=== PATIENT | male | born 1955 | race Caucasian/White ===

== ENCOUNTER 2017-05-30 05:16 | Day surgery (SDC) | payer BC ==
[~2017-05-30] VITALS: Ht 177.8 cm; Wt 93.0 kg
[2017-05-30] MEDS ORDERED: OMEG12006 PO (05:40)
[2017-05-30] MEDS ORDERED: MULT-351 PO (05:41)
[2017-05-30] MEDS ORDERED: NAPR1TAB9 PO (05:41)
[2017-05-30 05:45] VITALS: BP 142/97; PULSE 77; TEMP 36.6; O2SAT 99; Ht 177.8 cm; Wt 93.0 kg
[2017-05-30] MEDS ORDERED: LACTATED RINGER'S 1000ML 1,000 ML IV SCH (05:45)
[2017-05-30 05:48] LABS: HEMATOCRIT 39.8 % (42-52); MEAN CELL VOLUME 91.9 fL (80-100); MEAN CORPUSCULAR HEMOGLOBIN 32.8 pg (25-34); MEAN PLATELET VOLUME 10.2 fL (7.4-10.4); PLATELET COUNT 204 K/uL (130-400); RED BLOOD COUNT 4.33 M/uL (4.7-6.1); WHITE BLOOD COUNT 6.44 K/uL (4.8-10.8)
[2017-05-30 05:54] LABS: MEAN CORPUSCULAR HGB CONC 35.7 g/dl (32-36)
[2017-05-30] MEDS ORDERED: CEFAZOLIN 2000 MG/60 ML D5W IV SCH (06:00)
[2017-05-30] MEDS ORDERED: BUPIVACAINE 0.5 % 5 MG/1 ML PF 10ML VIAL ONE ×2 (06:23→07:13)
[2017-05-30] MEDS ORDERED: MEPIVACAINE HCL 1.5% 30 ML VIAL ONE (06:24)
[2017-05-30] MEDS ORDERED: CLONIDINE HCL 100 MCG/ML SYRINGE ONE (06:24)
[2017-05-30] MEDS ORDERED: DEXAMETHASONE SOD INJ 4 MG/ML VIAL ONE (06:58)
[2017-05-30] MEDS ORDERED: PHENYLEPHRINE HCL INJ 10 MG/ML VIAL ONE (06:58)
[2017-05-30] MEDS ORDERED: NEOSTIGMINE METHYLSULFATE 5 MG/5 ML SYR ONE (06:58)
[2017-05-30] MEDS ORDERED: FENTANYL CITRATE INJ 50 MCG/1 ML 2 ML VIAL ONE (06:58)
[2017-05-30] MEDS ORDERED: GLYCOPYRROLATE INJ 0.2 MG/ML VIAL ONE (06:58)
[2017-05-30] MEDS ORDERED: SUCCINYLCHOLINE CHLORIDE 20 MG/ML 10 ML VIAL IV ONE (06:58)
[2017-05-30] MEDS ORDERED: PROPOFOL IV EMULSION 10 MG/ML 20 ML VIAL IV ONE (06:58)
[2017-05-30] MEDS ORDERED: ROCURONIUM BROMIDE 10 MG/ML 5 ML VIAL IV ONE (06:58)
[2017-05-30] MEDS ORDERED: ONDANSETRON INJ 2 MG/ML 2 ML VIAL ONE (06:58)
[2017-05-30] MEDS ORDERED: LIDOCAINE HCL 2% 2 ML VIAL (20MG/ML) ONE (06:58)
[2017-05-30] MEDS ORDERED: EpHEDrine SULFATE INJ 50 MG/ML AMP ONE (06:58)
[2017-05-30] MEDS ORDERED: MIDAZOLAM HCL 1 MG/ML 2ML VIAL ONE ×3 (06:59→07:43)
--- NOTE | 2017-05-30 07:09 | History and Physical ---
History & Physical Date May 30, 2017. Chief Complaint Patient relates while doing a tough monitor event having a Forced dorsiflexion event staining complete rupture of his Achilles tendon History of Present Illness The patient is a 61 year old male with complaints of weakness palpable defect from a full-thickness Achilles tendon rupture left Achilles Additional History Hepatic Disease: No Endocrine Disorder: No Kidney Disease: No Hypertension: No Heart Disease: No Bleeding Tendencies: No Infectious Diseases: No Allergies Coded Allergies: NO KNOWN DRUG ALLERGIES (Verified Allergy, Unknown, none, 05/30/17) Home Medications Scheduled Multiple Vitamin (Multi Vitamin Mens), 1 TAB PO DAILY Naproxen (Aleve), 2 TAB PO QAM [place]-3 Fatty Acids ([place] 3), 1 CAP PO DAILY Physical Examination Skin: warm/dry, no rash Eyes: normal inspection, EOMI, sclerae normal ENT: normal ENT inspection, pharynx normal Head: normocephalic, atraumatic Neck: supple, no adenopathy, trachea midline Respiratory/Chest: lungs clear, normal breath sounds, no respiratory distress Cardiovascular: regular rate, rhythm, no edema, no murmur Abdomen / GI: normal bowel sounds, non tender Back: normal inspection Extremities: normal inspection, normal range of motion, + pertinent finding ( Achilles tendon rupture palpable defect E Gomez proximal to the insertion) Neurologic/Psych: no motor/sensory deficits, alert, normal reflexes, oriented x 3 Diagnosis Patient has a complete rupture of Achilles tendon 2 cm proximal to its insertion Plan of Treatment Achilles tendon repair postoperative antibiotics and splinting gait training
--- NOTE | 2017-05-30 07:09 | History & Physical Bridge Note ---
H&P Re-Evaluation Bridge Note: I have examined the patient, reviewed the History & Physical and in the interval since the performance of the History & Physical I have noted the following changes of clinical significance: No changes noted
--- NOTE | 2017-05-30 07:17 | Discharge Instructions ---
Discharge Instructions Date of Service May 30, 2017. Visit Reason for Visit: Left Ankle Achilles Tendon Injury, Sequela Discharge Discharge Diagnosis / Problem: left achilles tendon repair Discharge Goals Goal(s): Decrease discomfort, Improve function, Increase independence Activity Recommendations Activity Limitations: as noted below Shower/Bathe: tomorrow (keep splint covered and dry with plastic bag) Weightbearing Status: Left non-weightbearing Anesthesia . Post Anesthesia Instructions: If you have had General Anesthesia or IV Sedation: * Do not drive today. * Resume driving when surgeon permits. * Do not make important decisions or sign legal documents today. * Call surgeon for: 1. Temperature elevations greater than 101 degrees F. 2. Uncontrollable pain. 3. Excessive bleeding. 4. Persistent nausea and vomiting. 5. Medication intolerance (nausea, vomiting or rash). * For nausea and vomiting use only clear liquids such as: tea, soda, bouillon until nausea subsides, then gradually increase diet as tolerated. * If you have any concerns or questions, call your surgeon's office. If physician is unavailable and it is an emergency, call 911 or go to the nearest emergency room. . Instructions / Follow-Up Instructions / Follow-Up ACTIVITY RECOMMENDATIONS: * You should remain non-weightbearing on your left leg using crutches or a walker. SPECIAL CARE INSTRUCTIONS: * Some drainage onto the dressing is normal and is no cause for alarm. * Some swelling is natural especially after walking. When resting, keep your foot elevated above the level of your heart. * Call the doctor's office at if you notice increased drainage, fever over 101 degrees F. or severe constant pain. BANDAGE: * Leave bandage/cast in place unless otherwise directed. * Keep bandage/cast dry at all times. FOLLOW UP VISIT: If appointment is not already scheduled: Please call [facility] to make a follow-up appointment after your surgery at . Diet Recommendations Recommended Home Diet: resume previous diet Pending Studies Studies pending at discharge: no Medical Emergencies . Who to Call and When: Medical Emergencies: If at any time you feel your situation is an emergency, please call 911 immediately. . Non-Emergent Contact Non-Emergency issues call your: Primary Care Provider, Surgeon . . "Provider Documentation" section prepared by Marco A Pink. . ID Drug Monitoring Program Search Results: patient reviewed within database, no issues identified
--- NOTE | 2017-05-30 08:27 | [facility] Operative Report ---
Operative Report Operative Date May 30, 2017. Pre-Operative Diagnosis Complete Rupture of the Left Achilles Tendon Post-Operative Diagnosis Complete Rupture of the Left Achilles Tendon Procedure(s) Performed Left Ankle Achilles Repair utilizing #2 FiberWire core suture and epitendinous stitch Surgeon Dr. Reynolds Scleroscope Tester Surgeon(s) SHELLI Beckett Estimated Blood Loss 3cc Findings Patient presents with a complete disruption proximal a 7 weeks old of his left Achilles tendon 2 cm proximal to the Achilles tendon insertion with approximately 4-5 cm or proximal retraction Specimens none per surgeon Complication(s) None Disposition Recovery Room / PACU Indications Complete disruption with 4-5 cm defect left Achilles tendon Description of Procedure After proper prepping draping position placed on a prone position was. This bony prominences he had proper prepping draping of his left lower extremity from the just proximal to the knee including the whole lower leg and foot socially prone position intervention. Neurovascular structures a Dorsal incision was made and dissection carried through subcutaneous tissues to the region peritoneal apparently very carefully preserved and reflected from tendon the skin was not handled the wounds revealed loss of sterile saline solution socially the proximal and distal stumps were retracted and freed loose from the underlying scar tissue adhesions #2 FiberWire core suture was placed as well as a #4-0 FiberWire epitendinous suture was placed gave excellent reapproximation of the tendon edges of the peritenon was closed with 3-0 Vicryl in running fashion from proximal to distal subcuticular suture of Vicryl and 4- 0 nylon a sterile compressive dressing placed as well as a posterior plaster splint patient taken recovery in stable condition operative report dictated by Rodolfo patient Tim MARQUES was necessary for prepping draping retraction deep fascia was was necessary for closure of defect is subcutaneous and skin was necessary for the case I attest to the content of the Intraoperative Record and any orders documented therein. Any exceptions are noted below.
[2017-05-30] MEDS ORDERED: FLUMAZENIL 0.1 MG/1 ML 10 ML VIAL IV PRN (08:30)
[2017-05-30] MEDS ORDERED: EpHEDrine SULFATE INJ 50 MG/ML AMP IV PRN (08:30)
[2017-05-30] MEDS ORDERED: ONDANSETRON INJ 2 MG/ML 2 ML VIAL IV PRN ×2 (08:30→08:45)
[2017-05-30] MEDS ORDERED: PROMETHAZINE HCL INJ 12.5 MG in SODIUM CHLORIDE 0.9% 50ML 50 ML IV PRN (08:30)
[2017-05-30] MEDS ORDERED: NALOXONE HCL 0.4 MG/1 ML VIAL/CARP IV PRN (08:30)
[2017-05-30] MEDS ORDERED: ATROPINE SULFATE 0.1 MG/ML 5ML SYR IV PRN (08:30)
[2017-05-30] MEDS ORDERED: SODIUM CHLORIDE 0.9% 1000ML 1,000 ML IV SCH (08:42)
[2017-05-30] MEDS ORDERED: OXYC-57 PO (08:44)
[2017-05-30] MEDS ORDERED: OXYCODONE/ACETAMINOPHEN 5-325 TAB PO PRN ×2 (08:45)
[2017-05-30 09:40] VITALS: BP 99/64; PULSE 55; TEMP 36.5; O2SAT 98
--- NOTE | 2017-05-30 09:47 | Anesthesiology Progress Note ---
Anesthesia Post Op Note Date & Time May 30, 2017 at 09:47 Vital Signs Pain Intensity: 0 Vital Signs Past 12 Hours Date Time Temp Pulse Resp B/P (MAP) Pulse Ox O2 Delivery O2 Flow Rate FiO2 05/30/17 09:35 36.8 53 16 106/58 99 Room Air 05/30/17 09:20 36.8 51 16 103/60 99 Room Air 05/30/17 09:10 59 16 110/66 97 Room Air 05/30/17 09:00 52 14 108/68 97 Room Air 05/30/17 08:50 63 14 108/66 97 Room Air 05/30/17 08:42 36.6 57 14 102/67 97 Room Air 05/30/17 05:45 36.6 77 18 142/97 (112) 99 Room Air Notes Mental Status: alert / awake / arousable, participated in evaluation Pt Amnestic to Procedure: Yes Nausea / Vomiting: adequately controlled Pain: adequately controlled Airway Patency, RR, SpO2: stable & adequate BP & HR: stable & adequate Hydration State: stable & adequate Neuraxial Anesthesia: was administered, sensory block is resolving Anesthetic Complications: no major complications apparent
[2017-05-30 10:10] VITALS: BP 121/66; PULSE 52; O2SAT 100
[2017-05-30 10:45] VITALS: BP 111/65; PULSE 51; O2SAT 98
[2017-05-30 11:45] VITALS: BP 127/67; PULSE 60; O2SAT 100
[2017-05-30 12:45] VITALS: BP 125/58; PULSE 70; O2SAT 100
== END 2017-05-30 13:16 | disposition home or self-care (01) ==
LOC: C.ACU 05:16
PROVIDERS: ATTEND Orthopaedic Surgery
DX: S96.8 Injury of other specified muscles and tendons at ankle and foot level (principal); X58.XXXS Exposure to other specified factors, sequela; E66.9 Obesity, unspecified

== ENCOUNTER 2023-03-31 06:49 | Observation (INO) ==
--- NOTE | 2023-02-22 13:08 | PAT Medication Instructions ---
Medication Instructions Date of Service February 22, 2023 Home Medications Medication Instructions Recorded Cesar Mcintyre #1 ea 11/11/22 ferrous sulfate 325 mg (65 mg iron) tablet (iron) 650 mg PO BID multivitamin 1 tab PO DAILY DO NOT take the morning of surgery ferrous sulfate 325 mg (65 mg iron) tablet (iron) 650 mg PO BID multivitamin 1 tab PO DAILY Take evening before surgery ferrous sulfate 325 mg (65 mg iron) tablet (iron) 650 mg PO BID OTHERWISE NOTHING TO EAT OR DRINK AFTER MIDNIGHT Other Notes If you have any questions please call us at [phone] or [phone] or [phone] or [phone]
--- NOTE | 2023-03-02 13:46 | Anesthesiology Consultation ---
Date of Service March 02, 2023 Assessment & Plan (1) Encounter for pre-operative examination: - COVID screening: Per assessment on 03/02: No known COVID-19 positive contacts or current COVID-19 related symptoms. Travel screen negative. At surgeon discretion if preop Covid testing being done. - Outpatient joint assessment: Pt currently scheduled for inpatient pathway. If surgeon requests review for outpatient joint pathway, patient is an acceptable candidate for outpatient joint program from anesthesia standpoint pending surgeon's office assessment that patient is motivated, has good support and completes Same Day Joint Program preop requirements. - S/P Left Achilles repair (05/30/17): SAB x1 attempt + PNB at [facility] - Preop coags done 03/02/23 unable to be run per [facility] lab given specimen was "too lipemic." Lipid panel done by PCP same day were unremarkable. Possibly r/t food intake prior to having labs drawn. Will order coags for AM DOS. Chart Review Chart Review: Acceptable Risk for Surgery and Patient seen in Pre Admission Testing Teaching & Discussion Pre-Anesthesia Teaching/Discussion Notes: Instructed NPO after midnight before surgery,except medications with 15 cc of water. Medication instructions provided according to the PAT guidelines. History Surgery Operation Date: 03/31/23 07:00 Proposed Procedures p Right Total Hip Arthroplasty - Narayan Geroge MD Height/Weight Height: 5 ft 10 in Weight: 98 kg Allergies Allergy/AdvReac Type Severity Reaction Status Date / Time No Known Drug Allergies Allergy Unknown none Verified 02/17/23 14:18 Medications Home Medications Medication Instructions Recorded Confirmed Last Taken Wheeled Walker #1 ea 11/11/22 11/11/22 Unknown ferrous sulfate 325 mg (65 mg 650 mg PO BID 02/17/23 02/17/23 Unknown iron) tablet (iron) multivitamin 1 tab PO DAILY 02/17/23 02/17/23 Unknown Past Medical History Medical History Arthritis of right hip History of asthma As child Exercise / Class Metabolic Activity II 4-5 Yardwork/Stairs/Walk up hill Past Family History Family History Other No family history of adverse response to anesthesia Past Surgical History Surgical History History of colonoscopy History of tonsillectomy Hx of Achilles tendon repair Left Achilles repair (05/30/17): SAB x1 attempt + PNB at [facility] Past Anesthesia History No Hx of Anesthesia Complications and No Family Hx of Anesthesia Complications History of PONV No Hx of PONV and Hx of Motion Sickness (Situational) Social History Smoking Status: Former smoker tobacco type: cigarettes Do You Dip or Chew Tobacco: No Smoking End Date: Quit (hx light use) Hx Alcohol Use: Yes Alcohol type: beer alcohol intake frequency: a few times a week substance use type: does not use Review of Systems Patient denies chest pain, shortness of breath, dyspnea on exertion, fever, chills, cough, wheezing, palpitations. Physical Exam Vital Signs VITALS BP 142/92 P 90 TEMP 98.3 SP02 97%RA RESP 16 PHYSICAL Full cervical extension range of motion. Full TMJ range of motion. TMD 3.5 finger breaths Mallampati Score 2 Dentition: intact, + bridge (lower right side) Lungs: clear throughout to auscultation Cardiac: regular rate and rhythm, no murmurs noted Spine: normal Carotid arteries: negative bruit Extremities: no LE edema Lab Results Anesthesia Preop Results Results Anesthesia Widget: Blood Type AB Positive 03/02/23 Antibody Screen NEGATIVE 03/02/23 Testing Laboratory Results 03/02/23 WBC 5.55 H/H 13.8/40.0 PLATELETS 224 SODIUM 139 POTASSIUM 4.6 CHLORIDE 105 CO2 24 BUN 16 CREATININE 0.8 GLUCOSE 113 TSH 3.04 PSA 0.27 TESTOSTERONE 404.9 Triglycerides 143 Cholesterol 189 HDL 39L Non-HDL cholesterol 150 LDL 121 Electrocardiogram Date: 03/02/23 NSR at 87bpm. LAD. iRBBB. Chest X-Ray Date: 03/02/23 FINDINGS: PA and lateral chest radiographs are obtained. No prior studies are available for comparison at the time of dictation. The cardiomediastinal silhouette is unremarkable. The lungs and pleural spaces are clear. There is no pneumothorax. The skeletal structures are osteopenic. The bony thorax appears intact. Degenerative change is noted in the spine. IMPRESSION: No active disease in the chest. COVID-19 Risk Screen Screening Information COVID-19 Screen Date: 03/02/23 Exposure 21 Days Family/Household +COVID Last 21 Days: No Exposure 10 Days Any COVID Exposure Last 10 Days: No Symptoms Last 10 Days Experienced COVID Sx Last 10 Days: No + COVID 0-90 Days COVID + in Last 0-90 Days: No
--- NOTE | 2023-03-26 10:43 | History & Physical Report ---
Date of Service March 26, 2023 Assessment & Plan (1) Arthritis of right hip: Patient has advanced right hip arthritis. Is affecting his quality life and he like to have his hip fixed. Taken to the operating to a right total hip replacement. The risk meant this procedure plan the patient include but not limited to DVT PE infection neurological and vascular bleeding palm pain limb range of motion test is fairly with symptoms incomplete relief of symptoms fracture dislocation and need for revision surgery. Patient understands and desires to proceed. Informed consent is obtained. He does live by himself and can probably need some assistance. He is planned to be observed overnight and did discharge postoperative day 1 after physical therapy. He will follow back with me in 2 weeks. History of Present Illness Chief Complaint: . Right hip pain, stiffness, and discomfort. Primary Care Provider: Ambrose Rutherford PA-C . 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 He has had about a 2-year history of increasing right hip pain discomfort that is gradually gotten worse as time goes on. He enjoys walking and hiking and having more difficulty doing this. He can hike a couple miles but then has significant pain after that and pays for it for the next couple days. He does limp the more he is up and on it. He would like to keep hiking but have more difficulty doing this. He describes lateral hip pain groin pain thigh pain. No swelling. He has difficulty putting his shoes and socks on. He like to have his hip better as so he can maintain an active lifestyle. Allergies Allergy/AdvReac Type Severity Reaction Status Date / Time No Known Drug Allergies Allergy Unknown none Verified 02/17/23 14:18 Home Medications Medication Instructions Recorded Confirmed Type ferrous sulfate 325 mg (65 mg 650 mg PO BID 02/17/23 02/17/23 History iron) tablet (iron) multivitamin 1 tab PO DAILY 02/17/23 02/17/23 History Wheeled Walker #1 ea 03/17/23 Rx Past Med/Surg History Medical History Arthritis of right hip History of asthma As child Surgical History History of colonoscopy History of tonsillectomy Hx of Achilles tendon repair Left Achilles repair (05/30/17): SAB x1 attempt + PNB at [facility] Family History Other No family history of adverse response to anesthesia Social History Smoking Status: Former smoker Second Hand Exposure: No; Do You Dip or Chew Tobacco: No; Hx Alcohol Use: Yes Alcohol type: beer Preferred Language: Macedonian Frame Nailer Required: No Beliefs That Will Affect Care: None Current Living Situation: Alone Feels Safe at Home: Yes Assistive Devices: None Review of Systems All systems reviewed & are unremarkable except as noted in HPI & below. Physical Exam . Physical examination of the right hip reveals the patient walks with a minimal limp. The leg lengths appear pretty equal. Does have a lot of stiffness and internally rotates to neutral at best. Negative straight leg raise. Does recreate his pain. No knee effusion. He is neurologically intact. ENMT external ear and nose normal, oropharynx normal Neck trachea midline, no thyromegaly Respiratory normal respiratory effort, lungs clear to auscultation Cardiovascular RRR, no murmur, no edema Gastrointestinal (Abdomen) normal bowel sounds, soft, nontender, no hepatosplenomegaly Results & Data Results & Data Laboratory Results . Diagnostic Findings . X-rays of the right hip revealed advanced right hip arthritis but is got complete loss of the superior joint space. He is got some chondral sclerosis. Good bone density. Not a lot of osteophyte formation. PG Care Time/CCT Total # of Minutes Spent Total Time Spent with Patient: Total time spent is greater than 50% in coordination of care (as documented) at patient's floor/unit and/or counseling patient: Coding Level of Care Code None Diagnoses Arthritis of right hip M16.11
[~2023-03-31 06:49] MED LIST: ACETAMINOPHEN 500 MG TAB PO SCH; CeleBREX 200 MG CAP PO SCH; FAMOTIDINE 20 MG TAB PO SCH; LR 500ML BOLUS, THEN 15ML/HR IV SCH; LR 60ML/HR IV SCH; METOCLOPRAMIDE HCL 10 MG TABLET PO SCH; ROPIVACAINE 0.5% 5 MG/ML 30 ML VIAL ONE; Scopolamine 1 MG TDSY TD SCH; TRANEXAMIC ACID 1,000 MG **IV Pre-op IV SCH; ceFAZolin 2000MG 2,000 MG/15 ML SYR IV SCH
--- NOTE | 2023-03-31 06:56 | History & Physical Bridge Note ---
Date of Service March 31, 2023 History & Physical Bridge Note I have examined the patient, reviewed the History & Physical and in the interval since the performance of the History & Physical I have noted the following changes of clinical significance: no changes noted
[2023-03-31] MEDS ORDERED: MoRPHine SULFATE PF 1 MG/ML 10 ML AMP/VIAL ONE (07:28)
[2023-03-31] MEDS ORDERED: MIDAZOLAM HCL 1 MG/ML 2ML VIAL ONE ×2 (07:28→10:00)
[2023-03-31 07:53] LABS: INR 1.1 (0.9-1.1); Partial Thromboplastin Time 28.5 Seconds (21.0-31.0); Prothrombin Time 11.7 Seconds (9.0-12.0)
[2023-03-31] MEDS ORDERED: PROPOFOL IV EMULSION 10 MG/ML 20 ML VIAL IV ONE (08:32)
[2023-03-31] MEDS ORDERED: KETOROLAC 30 MG/ML VIAL ONE (08:32)
[2023-03-31] MEDS ORDERED: LIDOCAINE 2% 2 ML VIAL/AMP(20MG/ML) INFIL ONE (08:32)
[2023-03-31] MEDS ORDERED: ONDANSETRON INJ 2 MG/ML 2 ML VIAL ONE (08:32)
[2023-03-31] MEDS ORDERED: HYDROmorphone INJ 1 MG/ML SYRINGE IV PRN (08:40)
[2023-03-31] MEDS ORDERED: ATROPINE SULFATE 0.1 MG/ML 10ML SYR IV PRN (08:40)
[2023-03-31] MEDS ORDERED: KETOROLAC 30 MG/ML VIAL IV PRN ×2 (08:40→09:32)
[2023-03-31] MEDS ORDERED: ONDANSETRON INJ 2 MG/ML 2 ML VIAL IV PRN ×3 (08:40→12:15)
[2023-03-31] MEDS ORDERED: ePHEDrine sulfate 50 MG/ML AMP IV PRN ×2 (08:40→09:32)
[2023-03-31] MEDS ORDERED: diphenhydrAMINE 50 MG/ML VIAL IV PRN (09:32)
[2023-03-31] MEDS ORDERED: NALOXONE HCL 0.4 MG/1 ML VIAL/CARP IV PRN ×2 (09:32→12:15)
[2023-03-31] MEDS ORDERED: NALOXONE HCL 0.08 MG in SYRINGE 1.8 ML IV PRN (09:32)
[2023-03-31] MEDS ORDERED: LACTATED RINGER'S 500 ML IV PRN (09:32)
[2023-03-31] MEDS ORDERED: NALBUPHINE HCL INJ 10 MG/ML AMP IV PRN (09:32)
[2023-03-31] MEDS ORDERED: NALOXONE HCL 1 MG in SODIUM CHLORIDE 0.9% 1000ML 1,000 ML IV PRN (09:32)
[2023-03-31] MEDS ORDERED: HYDROmorphone INJ 0.5 MG/0.5 ML SYR IV PRN ×2 (09:32→12:15)
[2023-03-31] MEDS ORDERED: MoRPHine SULFATE PF 1 MG/ML 10 ML AMP/VIAL INT SPINAL ONE (09:32)
[2023-03-31] MEDS ORDERED: PROMETHAZINE HCL 12.5 MG in SODIUM CHLORIDE 0.9% 50 ML IV PRN (09:32)
[2023-03-31] MEDS ORDERED: BUPIVACAINE/EPINEPHRINE 0.5% MPF 1:200,000 30 ML VIAL ONE (09:38)
[2023-03-31] MEDS ORDERED: NO NARCOTICS OR SEDATIVES SCH (09:45)
[2023-03-31] MEDS ORDERED: DC INTRASPINAL MORPHINE SCH (09:45)
[2023-03-31] MEDS ORDERED: SODIUM CHLORIDE 0.9% 1000ML 1,000 ML IV SCH (09:45)
[2023-03-31] MEDS ORDERED: ePHEDrine sulfate 50 MG/ML SYR ONE (10:50)
[2023-03-31] MEDS ORDERED: PHENYLEPHRINE 100MCG/ML 5ML SYR ONE (10:50)
--- NOTE | 2023-03-31 11:29 | Operative Report ---
PG Post Operative Report Pre & Post Diagnosis Operation Date: 03/31/23 08:40 Pre-Op Diagnosis: Arthritis of right hip Post-Op Diagnosis: Arthritis of right hip I identified the patient and participated in the time-out.: Yes Procedure Operation Date: 03/31/23 08:40 Actual Procedures p Right Total Hip Arthroplasty(Right) - Narayan George MD Surgeon Narayan George MD Abrasive Worker None Estimated Blood Loss 200 Findings Consistent with Post-Op Diagnosis Operative findings reveal advanced hip DJD. He did have full-thickness cartilage loss of the femoral head. No real major eburnation. Fairly minimal osteophyte formation. Small to moderate-sized hip joint effusion. Specimens Right femoral head sent for pathology Anesthesia Type Spinal MAC Complications none Disposition Accompanied Patient To Recovery: No Indications Patient is a 67-year-old very active gentleman has had a several year history of increasing right hip pain discomfort is gotten significant worse over the past year that started limiting his activities. He had classic groin pain. X-rays show advanced hip arthritis. He failed conservative measures and elected proceed with total hip arthroplasty. Description of Procedure Operative implants consist of: 1 Biomet G7 size 56 mm acetabular shell. 2. Olmstead hole eliminator. 3. 6.5 cancellous acetabular screws 1 of 35 mm in length 130 mm length. 4. Highly cross-linked polyethylene liner with a 56 mm outer diameter and 36 mm inner diameter. 5. DePuy Karaya size 12 KLA femoral stem. 6. +1.5/36 mm ceramic articular ball. The patient was taken to the operating, identified, and placed on the operating table supine position. All contractors were appropriately padded. IV antibiotics tried by anesthesia team. A spinal anesthetic had been implemented holding area. Patient was then placed in the left lateral cubitus position. An axillary roll was placed. A Stulberg hip positioner was used for positioning. The right hip and leg were then prepped and draped in usual sterile fashion. A posterolateral approach to the right hip was then performed through a curvilinear incision centered over the greater trochanter. Sharp dissection scalp through subcutaneous tissue down to the IT band gluteal fascia. The IT band gluteal fascia was incised longitudinally in line with skin incision. His IT band was fairly thick. The greater trochanter bursa was excised. The piriformis and external rotators along with the hip joint capsule was then released from the posterior aspect of the hip as a single layer. Great care was taken throughout the procedure protect the sciatic nerve at all times. Hip was internally rotated and dislocated. A femoral neck osteotomy cut was made with a Final Cut about 15 mm above the lesser trochanter. Femoral head was removed and sent for pathology. The femur was retracted anteriorly. Attention drawn the acetabulum. The acetabular labrum was excised. The pulmonary fat was excised. Sequential reaming the acetabular was then performed again with a size 47 progressing up to 55. I did ream a little bit with a 56 reamer and then placed a 56 mm cup in about 40 degrees lateral opening and 20 degrees of anteversion. It was fixed with two 6.5 cancellous acetabular screws. Trial liner was placed. Attention drawn the femur. The femur was entered with a XenSource cutter followed by canal finder. Then broached beginning size 8 and progressed up to 12. Got excellent fit of the 12. We trialed the hip and the +5 articular ball provide full stability but seemed a bit tight in extension. Therefore we elect to place a 1.5 neck length segment. I was also able to advance the implant down a little bit further than the initial placement. Attention drawn to placing permanent implants. Nupathe all trial implants were removed. Olmstead hole limiter was placed. Highly cross- linked polyethylene liner was placed. A size 12 KLA femoral stem was impacted in position. +1.5/36 mm ceramic articular ball was placed. Hip was then examined and found to be stable. Attention drawn to closing. Wounds irrigated cosigns pulsatile lavage solution. I did inject locally with 60 cc of absent Marcaine with epinephrine. The posterior capsule and external rotators were repaired through drill holes in the posterior trochanter as a single layer with #2 Tycron suture. The IT band gluteal fascia then closed in 1 PDS suture running fashion. Subcutaneous tissues then closed with 2 Dexon suture in a buried interrupted fashion. Skin was closed skin johnny. Leg was then cleaned and dried and sterile dressed with Xeroform, 4 x 4's, ABD pad, foam tape was applied. The patient then transferred to the recovery room in stable condition. Patient tolerated the procedure well and there were no complications. I attest to the content of the Intraoperative Record and any orders documented therein. Any exceptions are noted below.
[2023-03-31] MEDS ORDERED: bisacodyL 10 MG SUPP PR PRN (12:15)
[2023-03-31] MEDS ORDERED: METOCLOPRAMIDE HCL INJ 5 MG/ML 2 ML VIAL IV PRN (12:15)
[2023-03-31] MEDS ORDERED: MAGNESIUM HYDROXIDE SUSP 30 ML UDC PO PRN (12:15)
[2023-03-31] MEDS ORDERED: ALUMINUM/MAGNESIUM SUSP 30 ML UDC PO PRN (12:15)
[2023-03-31] MEDS: SODIUM CHLORIDE 0.9% 1000ML 1,000 ML IV SCH ×2 (12:28→22:03)
[2023-03-31] MEDS: ACETAMINOPHEN 500 MG TAB PO SCH ×2 (13:35→20:17)
--- NOTE | 2023-03-31 13:40 | XRay Report ---
XR hip 1V RT w pelvis HISTORY: 67 years-old Male IN PACU - Post Surgical right hip arthroplasty COMPARISON: 11/11/2022 TECHNIQUE: AP view of the pelvis with crosstable lateral view of the related FINDINGS: Moderate left hip osteoarthritis. Right hip arthroplasty with lateral skin jonhny, expected postoper ative soft tissue swelling the deep tissue air. No acute fracture, dislocation or unexpected opaque f oreign body. IMPRESSION: Right hip arthroplasty with expected postoperative changes. [place] 112: Negative or not required by law. The above report was generated using voice recognition software. It may contain grammatical, syntax o r spelling errors. Electronically signed by: Dexter Jo M.D. 03/31/2023 1:39 PM
[2023-03-31] MEDS ORDERED: ACETAMINOPHEN 500 MG TAB PO SCH (14:00)
[2023-03-31] MEDS: Scopolamine CHECK PATCH PLACEMENT SCH ×2 (16:57→23:12)
[2023-03-31] MEDS: ASCORBIC ACID 500 MG TAB PO SCH (17:27)
[2023-03-31] MEDS ORDERED: TRANEXAMIC ACID / 0.7% NACL 1,000 MG/100 ML BAG IV SCH (17:30)
[2023-03-31] MEDS: ceFAZolin 2000MG 2,000 MG/15 ML SYR IV SCH (17:33)
[2023-03-31] MEDS: FERROUS SULFATE 325 MG TAB PO SCH (20:17)
[2023-03-31] MEDS: ASPIRIN 81 MG ECTAB PO SCH (20:17)
[2023-03-31] MEDS: DOCUSATE SODIUM 100 MG CAP PO SCH (20:17)
[2023-03-31] MEDS ORDERED: SENNA 8.6 MG TAB PO SCH ×2 (21:00)
[2023-03-31] MEDS ORDERED: TAMSULOSIN HCL 0.4 MG CAP PO SCH (22:45)
[2023-04-01] MEDS: ceFAZolin 2000MG 2,000 MG/15 ML SYR IV SCH (00:33)
[2023-04-01] MEDS ORDERED: traMADol HCL 50 MG TABLET PO PRN (03:33)
[2023-04-01 06:40] LABS: BUN Creatinine Ratio 17.8 (10-20); Calcium 8.7 mg/dl (8.6-10.3); Creatinine Clr Calc Pharmacy 89.8 ml/min; Est GFR (African American) 102.1 ml/min; Est GFR (Non-African American) 88.1 ml/min; Potassium 4.1 mmol/L (3.5-5.1)
--- NOTE | 2023-04-01 07:12 | Orthopedic Progress Note ---
Date of Service April 01, 2023 Assessment & Plan (1) Status post total hip replacement, right: 67-year-old gentleman postop day 1 from right hip replacement doing well. Pain is controlled. Hip is located. He is neurologically intact. Plan: 1 DVT prophylax include thigh-high teds and SCDs and aspirin. 2. Pain control doing well with current pain regimen. 3. PT OT. Weight-bear as tolerated. Right total hip protocol. 4. Disposition plan to discharge home with some home health later today Subjective . 67-year-old gentleman postop day 1 from right total hip placement. He is doing pretty well. Describes his hip pain is just soreness. No chest pain or shortness of breath. Not feeling dizzy or lightheaded. Has been getting up and around quite well Review of Systems All systems reviewed & are unremarkable except as noted in HPI & below. Physical Exam . Physical examination shows pleasant middle-age male. He is lying in bed looks comfortable this morning. Examination the right hip reveals dressing clean dry and intact. Leg lengths are equal. Hips are located. He is neurologically intact. Respiratory normal respiratory effort, lungs clear to auscultation Gastrointestinal (Abdomen) normal bowel sounds, soft, nontender, no hepatosplenomegaly Results & Data Results & Data Laboratory Results . Labs this morning are all pending Diagnostic Findings . PG Care Time/CCT Total # of Minutes Spent Total Time Spent with Patient: Total time spent is greater than 50% in coordination of care (as documented) at patient's floor/unit and/or counseling patient: Coding Level of Care Code 65983 Post Operative Follow-Up Diagnoses Status post total hip replacement, right Z96.641
[2023-04-01] MEDS ORDERED: dexAMETHasone 10 MG in SYRINGE 0 ML IV SCH (08:00)
[2023-04-01] MEDS: DOCUSATE SODIUM 100 MG CAP PO SCH (08:09)
[2023-04-01] MEDS: ACETAMINOPHEN 500 MG TAB PO SCH (08:09)
[2023-04-01] MEDS: Scopolamine CHECK PATCH PLACEMENT SCH (08:09)
[2023-04-01] MEDS: ASCORBIC ACID 500 MG TAB PO SCH (08:10)
[2023-04-01] MEDS: ASPIRIN 81 MG ECTAB PO SCH (08:10)
[2023-04-01] MEDS: FERROUS SULFATE 325 MG TAB PO SCH (08:11)
[2023-04-01] MEDS ORDERED: TAMSULOSIN HCL 0.4 MG CAP PO SCH (09:00)
[2023-04-01] MEDS ORDERED: MULTIVITAMIN TAB PO SCH (09:00)
[2023-04-01] MEDS ORDERED: NON-FORMULARY MEDICATION (Multivitamin Tablet) PO SCH (09:00)
[2023-04-01 09:44] LABS: Basophils # (auto) 0.02 K/uL (0-0.2); Basophils % (auto) 0.3 %; Eosinophils # (auto) 0.08 K/uL (0-0.50); Eosinophils % (auto) 1.1 %; Hemoglobin 11.5 g/dl (14.0-18.0); Immature Granulocytes # (auto) 0.03 K/uL (0.01-0.20); Immature Granulocytes % (auto) 0.4 %; Lymphocytes # (auto) 1.32 K/uL (1.2-3.4); Lymphocytes % (auto) 17.6 %; Mean Corpuscular Hemoglobin 32.8 pg (25.0-34.0); Mean Corpuscular Hgb Conc 34.8 g/dL (32.0-36.0); Mean Platelet Volume 10.8 fL (9.4-12.4); Monocytes # (auto) 0.79 K/uL (0.11-0.59); Monocytes % (auto) 10.5 %; Neutrophils # (auto) 5.26 K/uL (1.40-6.50); Neutrophils % (auto) 70.1 %; Platelet Count 176 K/uL (130-400); RDW Coefficient of Variation 12.3 % (11.5-14.5); RDW Standard Deviation 42.2 fL (36.4-46.3); Red Blood Count 3.51 M/uL (4.70-6.10)
[2023-04-01] MEDS ORDERED: KETOROLAC TROMETHAMINE 15 MG/ML VIAL IV SCH (10:00)
== END 2023-04-01 10:29 | disposition home health service (06) ==
LOC: 3E 06:49 → ASU 06:49